=== PATIENT | female | born 1990 | race Caucasian/White ===

== ENCOUNTER 2022-03-10 15:19 | Emergency (ER) | payer MEDICAID ==
[~2022-03-10] VITALS: Ht 162.6 cm; Wt 91.0 kg
[2022-03-10 15:34] VITALS: BP 117/69
[2022-03-10 16:28] LABS: URINE HCG POSITIVE (NEG)
== END 2022-03-10 18:36 | disposition home or self-care (01) ==
LOC: ER 15:20
DX: Z34.90 Encounter for supervision of normal pregnancy, unspecified, unspecified trimester (principal)
CPT/HCPCS: 81025; 99283